=== PATIENT | female | born 1955 | race Caucasian/White ===

== ENCOUNTER 2022-12-04 15:00 | Emergency (ER) | payer OTHER ==
--- OUTSIDE RECORDS SUMMARY | 2022-12-04 15:03 | XMS REPORT | Continuity of Care Document ---
:1955 Author Organization [facility] t Address [address] [place] [id number] Care Team Providers Name Role Phone Prakash Patel Attending Clinician Unavailable Payers Payer Name Policy Type Policy Number Effective Date Expiration Date [facility] [employer] [id number] 2022 (MEDICARE 00:00:00 REPLACEMENT HMO) Problems Condition Condition Condition Status Onset Resolution Last Treating Co mments Source Name Details Category Date Date Treatment Clinician Date Tobacco Tobacco Diagnosis Active Commo n abuse abuse Spirit counseling counseling - [facility] Depression Depression Problem Active C ommon with with [facility] anxiety anxiety - [facility] History of History of Problem Active C ommon breast breast [facility] cancer in cancer in - [facility] female female [facility] Cardiomyop Cardiomyop Problem Active C ommon athy due athy due Spirit to drug to drug - [facility] and and [facility] external external [facility] Allergic Allergic Problem Active Commo n rhinitis, rhinitis, Spir it unspecifie unspecifie - [facility] d d [facility] seasonalit seasonalit Gely kes y, y, Medical unspecifie unspecifie Ce nter d trigger d trigger Irritable Irritable Problem Active Com mon bowel bowel Spirit syndrome, syndrome, - [facility] I unspecifie unspecifie St d type d type [facility] Osteoporos Osteoporos Problem Active C ommon is, is, Spirit unspecifie unspecifie - [facility] d [facility] osteoporos osteoporos Gely kes is type, is type, Medica l unspecifie unspecifie Ce nter d d pathologic pathologic al al fracture fracture presence presence Gastroesop Gastroesop Problem Active C ommon hageal hageal Spirit reflux reflux - [facility] disease disease St without without [facility] esophagiti esophagiti [facility] Allergies, Adverse Reactions, Alerts Allergy Allergy Status Severity Reaction(s) Onset Inactive Treating Comm ents Source Name Type Date Date Clinician Contrast Adverse Active vomiting/pas C ommon Dye Reaction sed out [facility] Medications Ordered Filled Start Stop Current Ordering Indication Dosage Frequency Signature Comments Components Source Medication Medication Date Date Medication? Clinician (SIG) Name Name Pantoprazol Pantoprazol Yes Prakash 1 tablet Common e Sodium e Sodium - Amanda [facility] 00:00: - [facility] Quetiapine Quetiapine Yes Prakash 1 tablet Common Fumarate Fumarate Amanda [facility] Clonazepam Clonazepam Yes Prakash 1 tablet Common Amanda [facility] Calcium + Calcium + Yes Prakash 1 tablet Common D3 D3 Amanda with a [facility] meal [facility] Prolia Prolia Yes Prakash as Common Amanda directed [facility] Fluoxetine Fluoxetine Yes Prakash 1 capsule Common HCl HCl Amanda [facility] Zegerid OTC Zegerid OTC Yes Prakash 1 capsule Common Amanda on an [facility] empty - [facility] stomach [facility] Vitamin D3 Vitamin D3 Yes Prakash 1 capsule Common Amanda [facility] Excedrin Excedrin Yes Prakash 2 tablets Common Migraine Migraine Amanda [facility] Anastrozole Anastrozole Yes Prakash 1 tablet Common Amanda [facility] Cyclobenzap Cyclobenzap Yes Prakash 1 tablet Common rine HCl rine HCl Amanda as needed S pirit [facility] Procedures This patient has no known procedures. Encounters Start End Encounter Admission Attending Care Care Encounter Source Date/Time Date/Time Type Type Clinicians Facility Department ID 2021-12-01 Outpatient [facility] [id number] Common 13:50:00 [facility] 2021-09-02 Outpatient [facility] [id number] Common 09:48:02 [facility] 2021-07-08 Outpatient [facility] [id number] Common 13:06:22 [facility] 2021-07-08 Outpatient [facility] [id number] Common 12:59:21 [id number] [facility] 2021-07-08 Outpatient Amanda, [facility] [id number] Common 11:38:49 Prakash [id number] [facility] 2021-07-08 Outpatient Amanda, [facility] [id number] Common 11:29:07 Prakash [id number] [facility] 2022-09-22 2022-09-22 Outpatient [facility] SFA [id number] Jorge 13:31:13 13:31:13 [id number] F Cj 2022-06-29 2022-06-29 Outpatient [facility] DM [id number] [facility] 00:00:00 00:00:00 [id number] [facility] 2018-10-11 2018-10-11 Outpatient Cullen Bermant [id number] Common 14:00:00 14:00:00 [facility] 2018-06-21 2018-06-21 Outpatient Brazyimi Bermant [id number] Common 15:00:00 15:00:00 [facility] Results This patient has no known results.
[2022-12-04 16:28] LABS: Absolute Lymphocytes (CBC) 1.4 K/uL (0.7-4.9); Albumin 3.4 g/dL (3.4-5.0); Bilirubin Total 0.3 mg/dL (0.2-1.0); Hematocrit 39.4 % (36.0-45.0); Lymphocytes % 14.2 % (15.3-44.8); MCV 95.2 fL (80-100); MPV 6.7 fL (7.6-11.3); Potassium 3.7 mEq/L (3.5-5.1); Protein, Total 7.9 g/dL (6.4-8.2); RBC Red Blood Cell Count 4.14 M/uL (3.86-4.86)
--- NOTE | 2022-12-04 17:21 | RAD REPORT ---
EXAM DESCRIPTION: CT - Abdomen Pelvis Wo Contrast - 12/04/2022 4:51 pm CLINICAL HISTORY: Abdominal pain COMPARISON: 2019 CT chest TECHNIQUE: Computed axial tomography of the abdomen and pelvis was obtained. IV and oral contrast we re not requested. All CT scans are performed using dose optimization technique as appropriate and may include automated exposure control or mA/KV adjustment according to patient size. FINDINGS: The evaluation of solid organs, vessels and bowel is limited secondary to the lack of con trast administration. Hepatic and splenic granulomata Pancreas, adrenals and kidneys appear grossly normal. Fluid is present within nondilated large and small bowel Atherosclerotic disease. No evidence diverticulitis. 2.3 centimeter low-density left pericardial mass unchanged probably a cyst Spondylosis lumbar spine IMPRESSION: Fluid within nondilated large and small bowel may indicate an enteritis
[2022-12-04] MEDS ORDERED: ONDANSETRON 4 MG/2 ML VIAL ONE (18:22)
[2022-12-04] MEDS ORDERED: NA CHLORIDE 0.9% 1,000 ML ONE (18:22)
[2022-12-04] MEDS ORDERED: FAMOTIDINE 20 MG/2 ML VIAL IV ONE (18:22)
[2022-12-04] MEDS ORDERED: DICYCLOMINE HCL 20 MG/2 ML AMP IM ONE (19:16)
[2022-12-04] MEDS ORDERED: LOPERAMIDE HCL 2 MG CAPSULE ONE (19:16)
[2022-12-04 19:46] LABS: Specific Gravity 1.008 (1.005-1.030); Urine Bacteria None Seen /HPF (<20); Urine Bilirubin NEGATIVE (Negative); Urine Blood Negative (Negative); Urine Clarity Turbid (Clear); Urine Color Colorless (Yellow); Urine Glucose NEGATIVE (Negative); Urine Protein NEGATIVE (Negative); Urine RBC <5 /HPF (None Seen); Urine Urobilinogen Normal (Normal); Urine pH 7.5 (5.0-7.0)
--- NOTE | 2022-12-04 20:25 | EDPHYS ---
Physician Documentation [facility] Name: Autumn Dominguez Age: 67 yrs Sex: Female : 1955 Arrival Date: 12/04/2022 Time: 15:00 Bed 6 Private MD: DEE DEE Physician Joseph Currie HPI: 12/04 16:00 This 67 yrs old Female presents to ER via EMS with complaints of Diarrhea. cp 16:00 The patient presents to the emergency department with nausea, that is mild, diarrhea, cp that is continuous. Onset: The symptoms/episode began/occurred yesterday. Possible causes: unknown. Associated signs and symptoms: Pertinent negatives: abdominal pain, constipation, fever, GI bleeding, vomiting. Severity of symptoms: in the emergency department the symptoms are unchanged despite home interventions. Historical: - Allergies: 15:42 No Known Allergies; iw - PMHx: 15:42 breast cancer; iw - PSHx: 15:42 double mastectomy; iw - Immunization history:: Adult Immunizations up to date. - Social history:: Smoking status: unknown. ROS: 16:05 Constitutional: Positive for poor PO intake, Negative for body aches, chills, fever. cp 16:05 Eyes: Negative for injury, pain, redness, and discharge. cp 16:05 ENT: Negative for drainage from ear(s), ear pain, sore throat, difficulty swallowing, difficulty handling secretions. 16:05 Cardiovascular: Negative for chest pain, edema, palpitations. 16:05 Respiratory: Negative for cough, shortness of breath, wheezing. 16:05 Abdomen/GI: Positive for nausea, diarrhea, anorexia, Negative for abdominal pain, vomiting, constipation, black/tarry stool, rectal bleeding. 16:05 : Negative for urinary symptoms. 16:05 Neuro: Positive for weakness, Negative for altered mental status, dizziness, headache. 16:05 All other systems are negative. Exam: 16:15 Constitutional: The patient appears in no acute distress, alert, awake, cp non-diaphoretic, non-toxic, well developed, well nourished, uncomfortable. 16:15 Head/Face: Normocephalic, atraumatic. cp 16:15 Eyes: Periorbital structures: appear normal, Conjunctiva: normal, no exudate, no injection, Sclera: no appreciated abnormality, Lids and lashes: appear normal, bilaterally. 16:15 ENT: External ear(s): are unremarkable, Nose: is normal, Mouth: Lips: dry, Oral mucosa: pink and intact, moist, Posterior pharynx: is normal, airway is patent, no erythema, no exudate. 16:15 Chest/axilla: Inspection: normal. 16:15 Cardiovascular: Rate: tachycardic, Rhythm: regular, Edema: is not appreciated, JVD: is not appreciated. 16:15 Respiratory: the patient does not display signs of respiratory distress, Respirations: normal, no use of accessory muscles, no retractions, labored breathing, is not present, Breath sounds: are clear throughout, no decreased breath sounds, no stridor, no wheezing. 16:15 Abdomen/GI: Inspection: abdomen appears normal, Bowel sounds: active, all quadrants, Palpation: soft, in all quadrants, mild abdominal tenderness, in all quadrants, rebound tenderness, is not appreciated, involuntary guarding, is not appreciated. 16:15 Back: pain, is absent, ROM is normal. 16:15 Neuro: Orientation: to person, place \T\ time. Mentation: is normal, Motor: moves all fours, strength is normal, Sensation: is normal. Vital Signs: 15:41 BP 138 / 95; Pulse 109; Resp 19; Temp 99.1; Pulse Ox 100% on R/A; iw 19:39 BP 143 / 89; Pulse 98; Resp 18 S; Pulse Ox 100% on R/A; lg3 MDM: 15:54 Patient medically screened. cp 16:00 Differential diagnosis: gastritis, viral gastroenteritis, gastroenteritis, dehydration, cp electrolyte abnormality, colitis, enteritis. 20:25 Data reviewed: vital signs, nurses notes, lab test result(s), radiologic studies, CT cp scan. 20:25 Consideration of Admission/Observation Escalation of care including cp admission/observation considered. I considered the following discharge prescriptions or medication management in the emergency department Medications were administered in the Emergency Department. See MAR. Counseling: I had a detailed discussion with the patient and/or guardian regarding: the historical points, exam findings, and any diagnostic results supporting the discharge/admit diagnosis, lab results, radiology results, to return to the emergency department if symptoms worsen or persist or if there are any questions or concerns that arise at home. Response to treatment: the patient's symptoms have markedly improved after treatment, and as a result, I will discharge patient. 12/04 15:53 Order name: CBC with Diff; Complete Time: 16:45 cp 12/04 18:28 Interpretation: Normal except: PLT 476; MPV 6.7; GIO% 76.6; LYM% 14.2. cp 12/04 15:53 Order name: CMP; Complete Time: 16:45 cp 12/04 18:28 Interpretation: Normal except: NA 133; GLUC 109; ALK 145; CA 10.8; GLOB 4.5; A/G 0.8. cp 12/04 15:53 Order name: Lipase; Complete Time: 16:45 cp 12/04 15:53 Order name: Urinalysis w/ reflexes; Complete Time: 19:51 cp 12/04 19:51 Interpretation: Normal except: UCLA Turbid; UPH 7.5. cp 12/04 16:49 Order name: Abdomen ; Complete Time: 18:27 EDMS 12/04 15:53 Order name: IV Saline Lock; Complete Time: 18:22 cp 12/04 15:53 Order name: Labs collected and sent; Complete Time: 18:22 cp 12/04 18:29 Order name: PO challenge; Complete Time: 19:37 cp Administered Medications: 18:30 Drug: NS 0.9% IV 1000 ml Route: IV; Rate: 250 ml/hr; Site: left antecubital; eh3 20:30 Follow up: IV Status: Completed infusion; IV Intake: 1000ml eh3 18:30 Drug: Famotidine IVP 20 mg Route: IVP; Site: left antecubital; eh3 19:38 Follow up: Response: No adverse reaction lg3 18:30 Drug: Ondansetron IVP 4 mg Route: IVP; Site: left antecubital; eh3 19:38 Follow up: Response: No adverse reaction lg3 19:34 Drug: Loperamide PO 2 mg Route: PO; lg3 20:30 Follow up: Response: No adverse reaction eh3 19:34 Drug: Dicyclomine IM 20 mg Route: IM; Site: left deltoid; lg3 20:30 Follow up: Response: No adverse reaction eh3 Disposition Summary: 12/04/22 20:25 Discharge Ordered Location: Home cp Problem: new cp Symptoms: have improved cp Condition: Stable cp Diagnosis - Diarrhea, unspecified cp Followup: cp - With: Private Physician - When: 1 - 2 days - Reason: Recheck today's complaints Discharge Instructions: - Discharge Summary Sheet cp Forms: - Medication Reconciliation Form cp - Thank You Letter cp - Antibiotic Education cp - Prescription Opioid Use cp Prescriptions: - Zofran 4 mg Oral Tablet - take 1 tablet by ORAL route every 12 hours As needed; 20 tablet; Refills: 0, cp Product Selection Permitted - Lomotil 2.5-0.025 mg Oral Tablet - take 1 tablet by ORAL route every 6 hours As needed; 20 tablet; Refills: 0, cp Product Selection Permitted Signatures: Dispatcher [employer] EDMS Theodora Felix, RN RN iw Joseph Gibson PA PA cp Anne Mercer RN RN lg3 Thi Cheng RN RN eh3 Corrections: (The following items were deleted from the chart) 16:49 15:54 Abdomen Pelvis W Con+CT.RAD.BRZ ordered. EDMS EDMS 18:20 18:05 Abdomen Pelvis Wo Con+CT.RAD.BRZ ordered. EDMS EDMS
--- NOTE | 2022-12-04 20:25 | ER ---
Nurse's Notes [facility] Name: Autumn Dominguez Age: 67 yrs Sex: Female : 1955 Arrival Date: 12/04/2022 Time: 15:00 Bed 6 Private MD: Diagnosis: Diarrhea, unspecified Presentation: 12/04 15:03 Method Of Arrival: EMS: [facility] iw 15:40 Chief complaint: Patient states: diarrhea since last night and no appetite , has been iw drinking a lot of water. Coronavirus screen: At this time, the client does not indicate any symptoms associated with coronavirus-19. Ebola Screen: Patient negative for fever greater than or equal to 101.5 degrees Fahrenheit, and additional compatible Ebola Virus Disease symptoms Patient denies exposure to infectious person. Patient denies travel to an Ebola-affected area in the 21 days before illness onset. No symptoms or risks identified at this time. 15:41 Initial Sepsis Screen: Does the patient meet any 2 criteria? No. Patient's initial iw sepsis screen is negative. Does the patient have a suspected source of infection? No. Patient's initial sepsis screen is negative. Risk Assessment: Do you want to hurt yourself or someone else? Patient reports no desire to harm self or others. Onset of symptoms was December 03, 2022. 15:41 Acuity: MARIA ELENA 3 iw 15:43 Care prior to arrival: IV initiated. 20 GA, in the left antecubital area. iw Historical: - Allergies: 15:42 No Known Allergies; iw - PMHx: 15:42 breast cancer; iw - PSHx: 15:42 double mastectomy; iw - Immunization history:: Adult Immunizations up to date. - Social history:: Smoking status: unknown. Screenin:39 [facility] ED Fall Risk Assessment (Adult) History of falling in the last 3 months, lg3 including since admission No falls in past 3 months (0 pts). Abuse screen: Denies threats or abuse. Denies injuries from another. Nutritional screening: No deficits noted. Tuberculosis screening: No symptoms or risk factors identified. Assessment: 19:39 General: Appears in no apparent distress. comfortable, Behavior is calm, cooperative. lg3 Pain: Denies pain. Neuro: No deficits noted. Carey Agitation-Sedation Scale (RASS): 0 - Alert and Calm Level of Consciousness is awake, alert, obeys commands, Oriented to person, place, time, situation. Cardiovascular: No deficits noted. Denies chest pain, shortness of breath, Capillary refill < 3 seconds Clubbing of nail beds is absent JVD is absent Patient's skin is warm and dry. Respiratory: No deficits noted. Airway is patent Respiratory effort is even, unlabored, Respiratory pattern is regular, symmetrical. GI: No deficits noted. Abd is soft and non tender X 4 quads. Reports diarrhea. : No deficits noted. No signs and/or symptoms were reported regarding the genitourinary system. EENT: No deficits noted. No signs and/or symptoms were reported regarding the EENT system. Derm: No deficits noted. No signs and/or symptoms reported regarding the dermatologic system. Skin is intact, is healthy with good turgor, Skin is dry, Skin is normal, Skin temperature is warm. Musculoskeletal: No deficits noted. No signs and/or symptoms reported regarding the musculoskeletal system. Circulation, motion, and sensation intact. Range of motion: intact in all extremities. Vital Signs: 15:41 BP 138 / 95; Pulse 109; Resp 19; Temp 99.1; Pulse Ox 100% on R/A; iw 19:39 BP 143 / 89; Pulse 98; Resp 18 S; Pulse Ox 100% on R/A; lg3 ED Course: 15:03 Patient arrived in ED. iw 15:41 Triage completed. iw 15:41 Arm band placed on. iw 15:52 Joseph Gibson PA is PHCP. cp 15:52 Joseph Currie MD is Attending Physician. cp 16:53 Abdomen In Process Unspecified. EDMS 18:10 Thi Cheng, BAYRON is Primary Nurse. eh3 19:37 Urinalysis w/ reflexes Sent. lg3 19:39 Patient has correct armband on for positive identification. Placed in gown. Bed in low lg3 position. Call light in reach. Client placed on continuous cardiac and pulse oximetry monitoring. NIBP monitoring applied. Door closed. Noise minimized. Warm blanket given. Pillow given. 19:39 Maintain EMS IV. Dressing intact. Good blood return noted. Site clean \T\ dry. Gauge \T\ lg 3 site: 20 LAC. 20:31 No provider procedures requiring assistance completed. IV discontinued, intact, lg3 bleeding controlled, No redness/swelling at site. Pressure dressing applied. Administered Medications: 18:30 Drug: NS 0.9% IV 1000 ml Route: IV; Rate: 250 ml/hr; Site: left antecubital; eh3 20:30 Follow up: IV Status: Completed infusion; IV Intake: 1000ml eh3 18:30 Drug: Famotidine IVP 20 mg Route: IVP; Site: left antecubital; eh3 19:38 Follow up: Response: No adverse reaction lg3 18:30 Drug: Ondansetron IVP 4 mg Route: IVP; Site: left antecubital; eh3 19:38 Follow up: Response: No adverse reaction lg3 19:34 Drug: Loperamide PO 2 mg Route: PO; lg3 20:30 Follow up: Response: No adverse reaction eh3 19:34 Drug: Dicyclomine IM 20 mg Route: IM; Site: left deltoid; lg3 20:30 Follow up: Response: No adverse reaction eh3 Medication: 20:32 VIS not applicable for this client. lg3 Intake: 20:30 IV: 1000ml; Total: 1000ml. eh3 Outcome: 20:25 Discharge ordered by . cp 20:31 Discharged to home ambulatory. lg3 20:31 Condition: stable 20:31 Discharge instructions given to patient, Instructed on discharge instructions, follow up and referral plans. medication usage, Demonstrated understanding of instructions, follow-up care, medications, Prescriptions given X 2. 20:32 Patient left the ED. lg3 Signatures: Dispatcher [employer] EDTheodora Taveras RN RN Joseph Gibson PA PA Anne Lynn RN RN 3 Thi Cheng RN RN 3
[2022-12-04 21:12] VITALS: TEMP 99.1; O2SAT 100
[2022-12-04 21:13] VITALS: BP 143/89
== END 2022-12-04 20:32 | disposition home or self-care (01) ==
LOC: ER 15:00
DX: R19.7 Diarrhea, unspecified (principal); R53.1 Weakness; Z85.3 Personal history of malignant neoplasm of breast; Z90.13 Acquired absence of bilateral breasts and nipples
CPT/HCPCS: 96361; 85025; 81001; 36415; 83690; 80053; 74176; 96375; 96372; 96374; 99284; J0500; J2405; J7030